=== PATIENT | male | born 1990 | race Caucasian/White ===

== ENCOUNTER 2017-02-15 13:21 | Emergency (ER) | payer MEDICAID ==
[~2017-02-15] VITALS: Ht 170.2 cm; Wt 78.2 kg
[~2017-02-15 13:21] MED LIST: ACET325T33 PO; FAMO20TA PO; MAG-19 PO
[2017-02-15 13:28] VITALS: Ht 170.2 cm; Wt 78.2 kg
--- NOTE | 2017-02-15 15:52 | RADRPT ---
PROCEDURE: X-ray soft tissue neck CLINICAL INDICATION: Throat pain. Globus sensation. TECHNIQUE: AP and lateral x-ray of the soft tissues of the neck are available for review. COMPARISON: None available FINDINGS: The epiglottis is normal. The airway is clear. No significant airway compromise is seen. No radiopaque foreign body is identified. No other abnormality is seen. The osseous structures are unremarkable. IMPRESSION: 1. Unremarkable neck soft tissues. RPTAT: HLBP .Rico Lozoya MD, Date Time Electronically viewed and signed by .Rico Lozoya MD, on 02/15/2017 15:52 .P/
[2017-02-15] MEDS ORDERED: RANI150T9 PO (15:56)
--- NOTE | 2017-02-15 16:21 | ERD ---
ER Documentation Chief Complaint Chief Complaint SORE THROAT, FEELS THROAT AND TONGUE ARE SWOLLEN HPI 26-year-old male presents with neck pain, globus sensation, and symptoms of acid reflux starting about a month ago. 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 He reports burning pain in the epigastric region, and at times he feels like there is a squeezing sensation in his neck. He was previously tested for H pylori but his tests were negative, and he has tried taking Tums on and off for symptoms. He has not had any voice changes, drooling, fevers, chills. ROS All systems reviewed and are negative except as per history of present illness. Medications Home Meds Active Scripts Ranitidine Hcl* (Zantac*) 150 Mg Tablet, 150 MG PO BID Y for EPIGASTRIC PAIN, # 30 TAB Prov:CHAUNCEY SANCHEZ PA-C 02/15/17 Magaldrate/Simethicone* (Mylanta*) 355 Ml Susp, 30 ML PO QID Y for GASTROINTESTINAL UPSET, #1 BOTTLE Prov:NIKI MURPHY PA-C 09/14/14 Acetaminophen* (Tylenol*) 325 Mg Tablet, 2 TAB PO Q6 Y for PAIN AND OR ELEVATED TEMP, #20 TAB Prov:NIKI MURPHY PA-C 09/14/14 Famotidine (Heartburn Relief) 20 Mg Tablet, 20 MG PO QAM, #30 Prov:NIKI MURPHY PA-C 09/14/14 Allergies Allergies: Coded Allergies: No Known Allergy (Unverified , 09/13/14) PMhx/Soc Medical and Surgical Hx: pt denies Medical Hx, pt denies Surgical Hx Hx Alcohol Use: No Hx Substance Use: No Hx Tobacco Use: No Smoking Status: Never smoker Physical Exam Vitals Vital Signs Date Time Temp Pulse Resp B/P Pulse Ox O2 Delivery O2 Flow Rate FiO2 02/15/17 13:28 98.9 103 16 136/74 97 Physical Exam General: Well-developed, well-nourished. The patient appears in no acute distress. HEENT: Head is normocephalic, atraumatic. No scleral icterus. Pupils are equal , round, and reactive. Oral mucous membranes are moist. No pharyngeal erythema. Neck: Supple. Nontender. Ingestions, full range of motion. No masses. \ Lungs: Clear to auscultation. Normal air movement. Heart: Regular rate and rhythm. S1 and S2 are normal. No murmurs, gallops, or rubs. Abdomen: Soft, nontender, nondistended. Bowel sounds are normoactive. Extremities: No clubbing or cyanosis. Normal pulses. Moving extremities x 4. No weakness. Neurologic: Alert and oriented 3. No focal deficits. Skin: Normal turgor. No rash or lesions. Results 24 hrs DIAGNOSTIC IMAGING REPORT Patient: MARNI MONTALVO : 1990 Age: 26 Sex: M MR #: [id number] DOS: 02/15/17 1506 Ordering MD: CHAUNCEY SANCHEZ PA-C Location: [facility] Room/Bed: PROCEDURE: X-ray soft tissue neck CLINICAL INDICATION: Throat pain. Globus sensation. TECHNIQUE: AP and lateral x-ray of the soft tissues of the neck are available for review. COMPARISON: None available FINDINGS: The epiglottis is normal. The airway is clear. No significant airway compromise is seen. No radiopaque foreign body is identified. No other abnormality is seen. The osseous structures are unremarkable. IMPRESSION: 1. Unremarkable neck soft tissues. RPTAT: HLBP .Rico Lozoya MD, MD Date Time Electronically viewed and signed by .Rico Lozoya MD, MD on 02/15/2017 15:52 .P/ CC: CHAUNCEY SANCHEZ PA-C Procedures/MDM 26-year-old male comes in with neck pain, with a globus sensation. After the patient x-ray soft tissue neck, which is normal and patent. He does not have any voice changes, drooling, trismus. Suspicion for deep space infection, foreign body is low. He does have a history of gastritis which is not responding to Tums, patient will be started on ranitidine for this. If symptoms do not improve, advised patient that we are not able to see exactly inside, with a bronchoscopy. Patient does have some anxiety concerning throat cancer, the patient throat examination is normal, I do not see any abnormal masses or evidence of an abscess or bacterial tracheitis. If he has further concern or pain, the patient will be advised to follow-up with an ENT for direct visualization to rule out any kind of mass or abnormal growth. Otherwise at this time patient will be diagnosed with a globus sensation, to be follow-up with his primary care doctor, which the patient was informed he may need a referral to see ENT. Departure Diagnosis: Primary Impression: Globus sensation Condition: Good Patient Instructions: Abdominal Pain, Neck Pain, No Trauma Referrals: CINTHYA KELLEY (PCP) LISANDRO FAUST MD Additional Instructions: If your symptoms persist follow-up with an ear nose throat specialist for your sensation in the neck. X-rays normal, diagnosis will be a globus sensation. CHAUNCEY SANCHEZ PA-C Feb 15, 2017 16:21
== END 2017-02-15 16:25 | disposition home or self-care (01) ==
LOC: FTE 13:21
DX: F45.8 Other somatoform disorders (principal)
CPT/HCPCS: 70360; Z7502

== ENCOUNTER 2017-04-08 00:45 | Emergency (ER) | END 2017-04-08 04:39 | disposition left against medical advice (07) ==

== ENCOUNTER 2017-05-03 08:12 | Emergency (ER) | END 2017-05-03 11:48 | disposition home or self-care (01) ==

== ENCOUNTER 2017-06-23 17:11 | Emergency (ER) | END 2017-06-23 17:43 | disposition home or self-care (01) ==

== ENCOUNTER 2017-06-26 15:30 | Emergency (ER) | END 2017-06-26 20:27 | disposition home or self-care (01) ==

== ENCOUNTER 2018-06-13 21:00 | Emergency (ER) | payer SELFPAY ==
[~2018-06-13] VITALS: Ht 167.6 cm; Wt 83.1 kg
[~2018-06-13 21:00] MED LIST changes: +AZIT250T PO; +BENZ200C68 PO; +IBUP-1542 PO; +NAPR-985 PO; +RANI150T35 PO
[2018-06-13 21:11] VITALS: BP 150/89; PULSE 102; RESP 18; Ht 167.6 cm; Wt 83.1 kg
[2018-06-14] MEDS ORDERED: D-ME118S24 PO (10:56)
[2018-06-14] MEDS ORDERED: FLOV110 INHALATION (10:56)
[2018-06-14] MEDS ORDERED: IBUP-1561 PO (10:56)
[2018-06-14] MEDS ORDERED: ALBU18HF INHALATION (10:56)
[2018-06-14] MEDS ORDERED: FLUT16SP17 NASAL (10:59)
== END 2018-06-13 21:15 | disposition left against medical advice (07) ==
LOC: FTE 21:00
DX: Z53.21 Procedure and treatment not carried out due to patient leaving prior to being seen by health care provider (principal)

== ENCOUNTER 2018-06-14 09:51 | Emergency (ER) | payer SELFPAY ==
[~2018-06-14] VITALS: Ht 167.6 cm; Wt 82.0 kg
[2018-06-14 09:54] VITALS: BP 145/64; PULSE 87; RESP 17; Ht 167.6 cm; Wt 82.0 kg
[2018-06-14] MEDS ORDERED: FLOV110 INHALATION (10:56)
[2018-06-14] MEDS ORDERED: IBUP-1561 PO (10:56)
[2018-06-14] MEDS ORDERED: ALBU18HF INHALATION (10:56)
[2018-06-14] MEDS ORDERED: D-ME118S24 PO (10:56)
[2018-06-14] MEDS ORDERED: FLUT16SP17 NASAL (10:59)
--- NOTE | 2018-06-14 11:06 | ERD ---
ER Documentation Chief Complaint Chief Complaint COUGH CONGESTION X 1 WEEK HPI 27-year-old male presents for cough and nasal congestion times 1 week. Patient states that he also has shortness of breath occasionally with chest pain during his coughing episodes. He states that he also has chest pain with deep breat myron. He states that the pain is 8 out of 10. Denies fevers or chills. Patient noted that he had a cold about 2 weeks ago, symptoms initially improved however the cough continues. ROS All systems reviewed and are negative except as per history of present illness. Medications Home Meds Active Scripts Fluticasone Propionate* (Fluticasone Propionate* Nasal) 50 Mcg/Minden - 16 Gm Minden.susp, 1 SPRAY NASAL DAILY for nasal itchiness/swelling, #1 BOTTLE TO EACH NOSTRIL Prov:ABBEY GARCIA 06/14/18 Fluticasone Propionate* (Flovent* HFA 110) 12 Gm Inha, 1 PUFF INHALATION BID for cough/shortness of breath for 14 Days, #1 INHALER Prov:ABBEY GARCIA 06/14/18 Albuterol Sulfate* (Ventolin HFA*) 18 Gm Hfa.aer.ad, 2 PUFF INHALATION Q4H PRN for cough/shortness of breath, #1 INHALER Prov:ABBEY GARCIA 06/14/18 D-Methorphan Hb/P-Epd HCl/Bpm (Xbrklubbtn-Ummsksclcfb-Jg Syr) 118 Ml Syrup, 5 ML PO Q4H PRN for COUGH for 7 Days, #1 BOTTLE Prov:ABBEY GARCIA 06/14/18 Ibuprofen* (Motrin*) 400 Mg Tab, 400 MG PO Q6H PRN for PAIN AND OR ELEVATED TEMP, #30 TAB Prov:ABBEY GARCIA 06/14/18 Naproxen* (Naprosyn*) 500 Mg Tablet, 500 MG PO BID PRN for PAIN AND/OR INFLAMMATION, #30 TAB Prov:ANA ROSA LEBRON PA-C 06/26/17 Benzonatate* (Benzonatate*) 200 Mg Capsule, 200 MG PO TID PRN for COUGH, #15 CAP Prov:ANA ROSA LEBRON PA-C 06/23/17 Azithromycin* (Zithromax*) 250 Mg Tablet, 250 MG PO .LitaPACK DIRECTED, #6 TAB TAKE 500 MG (2 TABS) THE FIRST DAY THEN 250 MG (1 TAB) DAYS 2-5 Prov:ANA ROSA LEBRON PA-C 06/23/17 Ibuprofen* (Motrin*) 600 Mg Tab, 600 MG PO Q6H PRN for PAIN AND OR ELEVATED TEMP, #30 TAB Prov:GEOFAHADDWAYNE Mckee NP 05/03/17 Ranitidine Hcl* (Zantac*) 150 Mg Tablet, 150 MG PO BID PRN for EPIGASTRIC PAIN, #30 TAB Prov:CHAUNCEY SANCHEZ PA-C 02/15/17 Magaldrate/Simethicone* (Mylanta*) 355 Ml Susp, 30 ML PO QID PRN for GASTROINTESTINAL UPSET, #1 BOTTLE Prov:NIKI MURPHY PA-C 09/14/14 Acetaminophen* (Tylenol*) 325 Mg Tablet, 2 TAB PO Q6 PRN for PAIN AND OR ELEVATED TEMP, #20 TAB Prov:NIKI MURPHY PA-C 09/14/14 Famotidine (Heartburn Relief) 20 Mg Tablet, 20 MG PO QAM, #30 Prov:NIKI MURPHY PA-C 09/14/14 Allergies Allergies: Coded Allergies: No Known Allergy (Unverified , 06/14/18) PMhx/Soc History of Surgery: Yes (throat abscess) Hx Alcohol Use: No Hx Substance Use: No Hx Tobacco Use: No Smoking Status: Never smoker Physical Exam Vitals Vital Signs Date Temp Pulse Resp B/P (MAP) Pulse Ox O2 O2 Flow FiO2 Time Delivery Rate 06/14/18 98.0 87 17 145/64 97 09:54 (91) Physical Exam Const: No acute distress Head: Atraumatic Eyes: Normal Conjunctiva ENT: Normal External Ears, bilateral tympanic membrane intact without erythema or bulging noted, there is some mild nasal swelling and erythema, oral examination normal, no tonsillar swelling or exudate noted Neck: Full range of motion. No meningismus. Resp: Clear to auscultation bilaterally, no wheezing, rales, rhonchi Cardio: Regular rate and rhythm, no murmurs, no chest wall tenderness over the left side to palpation Skin: No petechiae or rashes Ext: No cyanosis, or edema Neur: Awake and alert Psych: Normal Mood and Affect Procedures/MDM Medical Decision Making: Differential diagnosis includes but not limited to upper respiratory infection, pneumonia, sepsis, posttussive cough. Differential diagnosis for chest pain includes but not limited to rib contusion secondary to cough, ACS, pulmonary embolism Patient appeared well on physical examination, nontoxic appearing. Lungs were clear to auscultation bilaterally. There is low suspicion for pneumonia, sepsis. Given that patient has a history of cold symptoms 2 weeks ago with continuation of cough that is worsened for the past week, likely the patient has posttussive cough Chest pain likely associated with cough, due to rib contusion. Given age and lack of risk factors unlikely the patient has ACS. Patient given prescription for supportive medications. Patient advised to follow up with PCP in 1-2 days. Patient advised to return to ED for new or worsening symptoms. Patient stable on discharge from the ED. Disclaimer: Inadvertent spelling and grammatical errors are likely due to EHR/dictation software use and do not reflect on the overall quality of patient care. Also, please note that the electronic time recorded on this note does not necessarily reflect the actual time of the patient encounter. Departure Diagnosis: Primary Impression: Cough Additional Impression: Chest wall pain Condition: Fair Patient Instructions: Chest Wall Strain Additional Instructions: Call your primary care doctor TOMORROW for an appointment during the next 1-2 days.See the doctor sooner or return here if your condition worsens before your appointment time. ABBEY GARCIA DO Jun 14, 2018 11:06
== END 2018-06-14 11:23 | disposition home or self-care (01) ==
LOC: FTE 09:51
DX: R07.89 Other chest pain (principal)
CPT/HCPCS: 99283